=== PATIENT | female | born 1975 | race African-American/Black ===

== ENCOUNTER 2020-07-31 11:19 | Inpatient (IN) | payer SELFPAY ==
[2020-07-31 11:52] VITALS: BMI 24.7
[2020-07-31] MEDS ORDERED: MECLIZINE HCL 12.5 MG TABLET PO ONE ×2 (12:19→13:52)
[2020-07-31] MEDS ORDERED: ONDANSETRON 4 MG/2 ML VIAL IVPUSH ONE (12:19)
[2020-07-31] MEDS ORDERED: ONDANSETRON *ODT* 4 MG TABLET SL ONE (12:29)
[2020-07-31] MEDS ORDERED: diazePAM 5 MG TABLET PO ONE (13:53)
[2020-07-31] MEDS ORDERED: MECLIZINE HCL 25 MG TABLET (FP) PO ONE (13:53)
[2020-07-31] MEDS ORDERED: MECLIZINE HCL 25 MG TABLET (FP) ONE (13:57)
[2020-07-31] MEDS ORDERED: diazePAM 5 MG TABLET ONE (13:57)
[2020-07-31] MEDS ORDERED: MECLIZINE HCL 12.5 MG TABLET ONE (13:57)
[2020-07-31 16:54] LABS: CHLORIDE 104 mmol/L (98-107); SODIUM 135 mmol/L (136-145)
[2020-07-31 16:56] LABS: BASO % 0.4 % (0-2.0); EOS % 0.1 % (0-4.5); HEMATOCRIT 38.4 % (32.4-45.2); HEMOGLOBIN 12.6 GM/dL (10.7-15.3); LYMPH % 15.6 % (8-40); MCH 30.4 pg (25.7-33.7); MCHC 32.9 g/dl (32.0-36.0); MEAN CELL VOLUME 92.4 fl (80-96); MEAN PLT VOLUME 9.5 fl (7.5-11.1); MONO % 6.6 % (3.8-10.2); NEUT % 77.3 % (42.8-82.8); PLATELET COUNT 360 K/MM3 (134-434); RBC 4.15 M/mm3 (3.60-5.2); WHITE BLOOD COUNT 6.8 K/mm3 (4.0-10.0)
[2020-07-31 16:57] LABS: CALCIUM 9.4 mg/dL (8.5-10.1)
[2020-07-31 16:58] LABS: ALBUMIN 4.2 g/dl (3.4-5.0); ANION GAP 5 MMOL/L (8-16); BLOOD UREA NITROGEN 10.8 mg/dL (7-18); CO2 26 mmol/L (21-32); GLUCOSE,RANDOM 84 mg/dL (74-106)
[2020-07-31 17:01] LABS: CHOLESTEROL 185 mg/dL (50-200); CREATININE 0.8 mg/dL (0.55-1.3); SGOT/AST 37 U/L (15-37); SGPT/ALT 18 U/L (13-61); TRIGLYCERIDES 65 mg/dL (0-150)
[2020-07-31 17:02] LABS: LDL CHOLESTEROL (ONLY SJRH) 117 mg/dL (5-100)
[2020-07-31 17:03] LABS: BILIRUBIN,TOTAL 0.7 mg/dL (0.2-1); TOT PROT 9.1 g/dl (6.4-8.2)
[2020-07-31 17:04] LABS: ALK PHOS 67 U/L (45-117)
[2020-07-31 17:44] LABS: HDL CHOLESTEROL 59 mg/dL (40-60)
[2020-07-31] MEDS ORDERED: IBUPROFEN 600 MG TABLET (FP) PO ONE ×2 (19:30→19:32)
[2020-08-01] MEDS ORDERED: ONDANSETRON 4 MG TABLET PO PRN (08:41)
[2020-08-01] MEDS ORDERED: MECLIZINE HCL 25 MG TABLET (FP) PO SCH (08:45)
[2020-08-01] MEDS ORDERED: TOPIRAMATE 25 MG TABLET ONE (08:59)
[2020-08-01] MEDS ORDERED: MECLIZINE HCL 25 MG TABLET (FP) ONE (08:59)
[2020-08-01 09:51] LABS: BASO % 0.8 % (0-2.0); EOS % 1.8 % (0-4.5); HEMATOCRIT 37.5 % (32.4-45.2); HEMOGLOBIN 12.4 GM/dL (10.7-15.3); LYMPH % 24.6 % (8-40); MCH 30.7 pg (25.7-33.7); MCHC 33.1 g/dl (32.0-36.0); MEAN CELL VOLUME 92.6 fl (80-96); MEAN PLT VOLUME 8.6 fl (7.5-11.1); NEUT % 61.8 % (42.8-82.8); PLATELET COUNT 339 K/MM3 (134-434); RBC 4.05 M/mm3 (3.60-5.2); RDW 12.8 % (11.6-15.6)
[2020-08-01] MEDS ORDERED: LORazepam 0.5 MG TABLET PO ONE (09:55)
[2020-08-01] MEDS ORDERED: diphenhydrAMINE HCL 25 MG CAPSULE (FP) PO ONE ×2 (09:55→10:12)
[2020-08-01] MEDS ORDERED: TOPIRAMATE 25 MG TABLET PO SCH (10:00)
[2020-08-01] MEDS ORDERED: LORazepam 1 MG TABLET ONE (10:13)
[2020-08-01 10:17] LABS: POTASSIUM 4.4 mmol/L (3.5-5.1)
[2020-08-01 10:20] LABS: CALCIUM 9.3 mg/dL (8.5-10.1)
[2020-08-01 10:21] LABS: ALBUMIN 3.9 g/dl (3.4-5.0); BLOOD UREA NITROGEN 11.8 mg/dL (7-18)
[2020-08-01 10:25] LABS: BILIRUBIN,TOTAL 0.3 mg/dL (0.2-1); TOT PROT 8.3 g/dl (6.4-8.2)
[2020-08-01] MEDS ORDERED: SODIUM CHLORIDE 500 ML IV STA (11:43)
[2020-08-01] MEDS ORDERED: ACETAMINOPHEN/CAFFEINE/BUTALBITAL 1 TAB PO PRN (11:52)
[2020-08-01 13:12] VITALS: BP 122/84; PULSE 71; TEMP 98
== END 2020-08-01 13:00 | disposition home or self-care (01) | DRG 58 ==
LOC: JER 11:19 → JERBED 15:37
PROVIDERS: ATTEND Nurse Practitioner Family
DX: R26.89 Other abnormalities of gait and mobility (principal); H91.91 Unspecified hearing loss, right ear; H81.10 Benign paroxysmal vertigo, unspecified ear; G43.909 Migraine, unspecified, not intractable, without status migrainosus; H83.09 Labyrinthitis, unspecified ear
CPT/HCPCS: 36415; 70450-TC; 71045-TC-FY; 80053; 80061; 82550; 82553; 83721; 84443; 84484; 85025; 93005; 93010; 99285-25; C9803; Q0162; U0003

== ENCOUNTER 2021-10-20 16:29 | Emergency (ER) | payer OTHER ==
[2021-10-20 16:44] VITALS: TEMP 97.8; BMI 23.1
[2021-10-20] MEDS ORDERED: ACETAMINOPHEN 1000 MG/100 ML BAG IVPB ONE (17:35)
[2021-10-20] MEDS ORDERED: METOCLOPRAMIDE HCL INJECTION 10 MG/2 ML VIAL IVPB ONE (17:35)
[2021-10-20] MEDS ORDERED: SODIUM CHLORIDE 1,000 ML IV STA (17:35)
[2021-10-20] MEDS ORDERED: ACETAMINOPHEN INJECTION 100 ML IVPB ONE (18:12)
[2021-10-20] MEDS ORDERED: METOCLOPRAMIDE HCL INJECTION 10 MG/2 ML VIAL ONE (18:12)
[2021-10-20] MEDS ORDERED: KETOROLAC TROMETHAMINE 60 MG/2 ML VIAL IM ONE (19:52)
[2021-10-20] MEDS ORDERED: LIDOCAINE 5% TOPICAL PATCH TP ONE (19:52)
[2021-10-20] MEDS ORDERED: KETOROLAC TROMETHAMINE 15 MG/ML VIAL ONE (19:57)
[2021-10-20] MEDS ORDERED: LIDOCAINE 5% TOPICAL PATCH ONE (19:57)
[2021-10-20 22:00] VITALS: BP 130/76; PULSE 78
== END 2021-10-20 22:01 | disposition home or self-care (01) ==
LOC: JER 16:29
PROC: 3E0333Z Introduction of Anti-inflammatory into Peripheral Vein, Percutaneous Approach (ICD-10-PCS; principal; 2021-10-20)
PROC: 3E033GC Introduction of Other Therapeutic Substance into Peripheral Vein, Percutaneous Approach (ICD-10-PCS; 2021-10-20)
PROC: 3E033GC Introduction of Other Therapeutic Substance into Peripheral Vein, Percutaneous Approach (ICD-10-PCS; 2021-10-20)
PROC: 3E0337Z Introduction of Electrolytic and Water Balance Substance into Peripheral Vein, Percutaneous Approach (ICD-10-PCS; 2021-10-20)
PROC: 3E0233Z Introduction of Anti-inflammatory into Muscle, Percutaneous Approach (ICD-10-PCS; 2021-10-20)
DX: R51.9 Headache, unspecified (principal)
CPT/HCPCS: 70450-TC; 99284-25

== ENCOUNTER 2022-08-11 10:12 | Emergency (ER) | payer OTHER ==
[2022-08-11 10:27] VITALS: RESP 18; BMI 22.1
[2022-08-11] MEDS ORDERED: SODIUM CHLORIDE 1,000 ML IV SCH (10:45)
[2022-08-11 11:59] LABS: BASO % 1.9 % (0-2.0); EOS % 0.3 % (0-4.5); HEMATOCRIT 37.8 % (32.4-45.2); HEMOGLOBIN 12.2 GM/dL (10.7-15.3); LYMPH % 9.4 % (8-40); MCH 29.6 pg (25.7-33.7); MCHC 32.3 g/dl (32.0-36.0); MEAN CELL VOLUME 91.4 fl (80-96); MEAN PLT VOLUME 9.7 fl (7.5-11.1); MONO % 10.1 % (3.8-10.2); NEUT % 78.3 % (42.8-82.8); PLATELET COUNT 306 10^3/uL (134-434); RBC 4.13 M/mm3 (3.60-5.2); RDW 14.9 % (11.6-15.6); WHITE BLOOD COUNT 7.1 K/mm3 (4.0-10.0)
[2022-08-11 12:15] LABS: ACTIVATED PTT 32.7 SECONDS (25.2-36.5); INR 1.03 (0.83-1.09); PROTHROMBIN TIME (PATIENT) 11.9 SEC (9.7-13.0)
[2022-08-11 12:18] LABS: CALCIUM 9.3 mg/dL (8.5-10.1)
[2022-08-11 12:19] LABS: ALBUMIN 3.8 g/dl (3.4-5.0)
[2022-08-11 12:21] LABS: BLOOD UREA NITROGEN 8.4 mg/dL (7-18)
[2022-08-11 12:22] LABS: CREATININE 0.7 mg/dL (0.55-1.3)
[2022-08-11 12:25] LABS: BILIRUBIN,TOTAL 0.6 mg/dL (0.2-1)
[2022-08-11 15:23] VITALS: BP 137/98; PULSE 74
[2022-08-11 15:36] VITALS: TEMP 98
== END 2022-08-11 16:40 | disposition short-term general hospital (02) ==
LOC: JER 10:12
PROC: 3E0337Z Introduction of Electrolytic and Water Balance Substance into Peripheral Vein, Percutaneous Approach (ICD-10-PCS; principal; 2022-08-11)
DX: I72.0 Aneurysm of carotid artery (principal); R42 Dizziness and giddiness
CPT/HCPCS: 0241U-QW; 36415; 70450-TC; 70496-TC; 70498-TC; 80053; 80061; 82550; 83036; 84484; 84703; 85025; 85610; 85730; 86850; 86900; 86901; 93005; 93010; 99285-25

== ENCOUNTER 2023-01-19 00:47 | Observation (INO) | payer OTHER ==
[2023-01-19] MEDS ORDERED: METOCLOPRAMIDE HCL INJECTION 10 MG/2 ML VIAL IVPUSH ONE (00:49)
[2023-01-19] MEDS ORDERED: SODIUM CHLORIDE 0.9% 500 ML INFUS.BAG IV ONE (00:49)
[2023-01-19] MEDS ORDERED: METOCLOPRAMIDE HCL INJECTION 10 MG/2 ML VIAL ONE (01:04)
[2023-01-19] MEDS ORDERED: ONDANSETRON 4 MG/2 ML VIAL IVPUSH ONE (01:17)
[2023-01-19] MEDS ORDERED: ONDANSETRON 4 MG/2 ML VIAL ONE (01:20)
[2023-01-19] MEDS ORDERED: SODIUM CHLORIDE 1,000 ML IV STA (01:28)
[2023-01-19 01:30] LABS: BASO % 0.8 % (0-2.0); EOS % 0.8 % (0-4.5); HEMATOCRIT 32.1 % (32.4-45.2); HEMOGLOBIN 10.3 GM/dL (10.7-15.3); LYMPH % 21.2 % (8-40); MCH 25.7 pg (25.7-33.7); MEAN CELL VOLUME 80.4 fl (80-96); MEAN PLT VOLUME 8.8 fl (7.5-11.1); MONO % 9.7 % (3.8-10.2); NEUT % 67.5 % (42.8-82.8); PLATELET COUNT 305 10^3/uL (134-434); RBC 3.99 M/mm3 (3.60-5.2); RDW 19.8 % (11.6-15.6); WHITE BLOOD COUNT 6.1 K/mm3 (4.0-10.0)
[2023-01-19 01:37] LABS: INR 0.97 (0.83-1.09); PROTHROMBIN TIME (PATIENT) 11.3 SEC (9.7-13.0)
[2023-01-19 01:47] LABS: CHLORIDE 105 mmol/L (98-107); POTASSIUM 3.4 mmol/L (3.5-5.1); SODIUM 140 mmol/L (136-145)
[2023-01-19 01:49] LABS: ALBUMIN 3.9 g/dl (3.4-5.0); ANION GAP 11 MMOL/L (8-16); BLOOD UREA NITROGEN 15.5 mg/dL (7-18); CALCIUM 9.7 mg/dL (8.5-10.1); CO2 25 mmol/L (21-32); GLUCOSE,RANDOM 126 mg/dL (74-106)
[2023-01-19 01:53] LABS: CREATININE 0.9 mg/dL (0.55-1.3); SGPT/ALT 24 U/L (13-61)
[2023-01-19 01:54] LABS: BILIRUBIN,TOTAL 0.3 mg/dL (0.2-1)
[2023-01-19 01:55] LABS: TOT PROT 7.8 g/dl (6.4-8.2)
[2023-01-19 01:56] LABS: ALK PHOS 46 U/L (45-117)
[2023-01-19 02:04] LABS: SGOT/AST 16 U/L (15-37)
[2023-01-19] MEDS ORDERED: POTASSIUM CHLORIDE TABS 20 MEQ TABLET.ER (FP) PO ONE (02:29)
[2023-01-19 05:24] LABS: MAGNESIUM 1.8 mg/dL (1.8-2.4)
[2023-01-19 05:27] LABS: IRON SERUM 41 ug/dL (50-175); TOTAL IRON BINDING CAPACITY 450 ug/dL (250-450)
[2023-01-19 05:33] LABS: RETICULOCYTES 1.44 % (0.5-1.5)
[2023-01-19] MEDS: KCL 10 MEQ IVPB 10 MEQ/100 ML INFUS.BAG IVPB SCH ×3 (06:44→08:45)
[2023-01-19] MEDS: ENOXAPARIN NA (PORCINE) 40 MG/0.4 ML DISP.SYRIN SQ SCH (10:00)
[2023-01-19] MEDS ORDERED: MECLIZINE HCL 25 MG TABLET (FP) PO PRN (13:04)
[2023-01-19] MEDS ORDERED: LORazepam 2 MG/ML SDV VIAL IVPUSH PRN (16:15)
[2023-01-20 06:41] LABS: EOS % 1.2 % (0-4.5); HEMATOCRIT 30.5 % (32.4-45.2); HEMOGLOBIN 9.7 GM/dL (10.7-15.3); LYMPH % 25.4 % (8-40); MCHC 31.7 g/dl (32.0-36.0); MEAN CELL VOLUME 82.2 fl (80-96); MEAN PLT VOLUME 9.4 fl (7.5-11.1); MONO % 10.5 % (3.8-10.2); NEUT % 61.9 % (42.8-82.8); PLATELET COUNT 273 10^3/uL (134-434); RBC 3.71 M/mm3 (3.60-5.2); RDW 20.5 % (11.6-15.6); WHITE BLOOD COUNT 4.1 K/mm3 (4.0-10.0)
[2023-01-20 06:58] LABS: POTASSIUM 3.8 mmol/L (3.5-5.1)
[2023-01-20 07:01] LABS: CALCIUM 8.7 mg/dL (8.5-10.1)
[2023-01-20 07:02] LABS: ALBUMIN 3.2 g/dl (3.4-5.0)
[2023-01-20 07:05] LABS: CREATININE 0.9 mg/dL (0.55-1.3); PHOSPHOROUS 3.1 mg/dL (2.5-4.9)
[2023-01-20 07:06] LABS: BILIRUBIN,TOTAL 0.4 mg/dL (0.2-1); TOT PROT 6.6 g/dl (6.4-8.2)
[2023-01-20 09:11] LABS: ANISOCYTOSIS 2+; MACROCYTOSIS 0; OVALOCYTE 1+
[2023-01-20] MEDS: ENOXAPARIN NA (PORCINE) 40 MG/0.4 ML DISP.SYRIN SQ SCH (10:16)
[2023-01-20 10:44] LABS: COCAINE, UR NEGATIVE (NEGATIVE); METHADONE, UR NEGATIVE (NEGATIVE); OPIATES, URI NEGATIVE (NEGATIVE); URINE AMPHETAMINES NEGATIVE (NEGATIVE)
[2023-01-20 10:45] LABS: PHENCYCLIDINE,URINE NEGATIVE (NEGATIVE); URINE BARBITURATES NEGATIVE (NEGATIVE); URINE BENZODIAZEPINES NEGATIVE (NEGATIVE)
[2023-01-20] MEDS ORDERED: MECLIZINE HCL 25 MG TABLET (FP) PO ONE (13:57)
[2023-01-20] MEDS ORDERED: SODIUM CHLORIDE 250 ML IV STA (14:33)
[2023-01-20] MEDS: SODIUM CHLORIDE 1,000 ML IV SCH (15:44)
[2023-01-20] MEDS ORDERED: MECLIZINE HCL 25 MG TABLET (FP) PO SCH (18:00)
[2023-01-20] MEDS: MECLIZINE HCL 25 MG TABLET (FP) PO SCH (21:22)
[2023-01-21] MEDS: MECLIZINE HCL 25 MG TABLET (FP) PO SCH ×4 (06:23→17:40)
[2023-01-21 08:15] LABS: BASO % 0.9 % (0-2.0); EOS % 0.8 % (0-4.5); HEMATOCRIT 28.8 % (32.4-45.2); LYMPH % 26.8 % (8-40); MCH 26.1 pg (25.7-33.7); MCHC 31.3 g/dl (32.0-36.0); MEAN CELL VOLUME 83.5 fl (80-96); MEAN PLT VOLUME 10.2 fl (7.5-11.1); MONO % 9.7 % (3.8-10.2); NEUT % 61.8 % (42.8-82.8); PLATELET COUNT 247 10^3/uL (134-434); RBC 3.45 M/mm3 (3.60-5.2); RDW 20.6 % (11.6-15.6); WHITE BLOOD COUNT 4.8 K/mm3 (4.0-10.0)
[2023-01-21 08:28] LABS: POTASSIUM 3.8 mmol/L (3.5-5.1)
[2023-01-21 08:30] LABS: CALCIUM 8.3 mg/dL (8.5-10.1)
[2023-01-21 08:31] LABS: BLOOD UREA NITROGEN 8.3 mg/dL (7-18)
[2023-01-21 08:33] LABS: MAGNESIUM 1.7 mg/dL (1.8-2.4)
[2023-01-21 08:34] LABS: CREATININE 0.7 mg/dL (0.55-1.3); PHOSPHOROUS 2.8 mg/dL (2.5-4.9)
[2023-01-21 08:35] LABS: TOT PROT 6.1 g/dl (6.4-8.2)
[2023-01-21 08:36] LABS: BILIRUBIN,TOTAL 0.3 mg/dL (0.2-1)
[2023-01-21] MEDS: ENOXAPARIN NA (PORCINE) 40 MG/0.4 ML DISP.SYRIN SQ SCH (09:13)
[2023-01-21 11:24] VITALS: BMI 21.7
[2023-01-21] MEDS ORDERED: PRASUGREL HCL 10 MG TAB PO SCH ×3 (18:00→22:00)
[2023-01-21] MEDS ORDERED: ASPIRIN 81 MG CHEWABLE TABLETS PO SCH ×2 (18:00→22:00)
[2023-01-21] MEDS: SODIUM CHLORIDE 1,000 ML IV SCH (21:53)
[2023-01-21] MEDS ORDERED: ASPIRIN COATED 81 MG TABLET.EC PO SCH ×2 (22:00)
[2023-01-22] MEDS ORDERED: MAGNESIUM 2GM/50ML STERILE WATER IVPB IVPB ONE (08:00)
[2023-01-22 09:40] VITALS: RESP 18; TEMP 98.8
[2023-01-22] MEDS: ENOXAPARIN NA (PORCINE) 40 MG/0.4 ML DISP.SYRIN SQ SCH (09:40)
[2023-01-22 09:43] VITALS: BP 122/77; PULSE 76
[2023-01-22] MEDS ORDERED: MULTIVITAMINS THER W-MINERALS COMBO TABLET (FP) PO SCH (10:00)
== END 2023-01-22 15:57 | disposition home or self-care (01) ==
LOC: JER 00:47 → INTOOBSV 02:31 → UNDOADMOB 02:31 → JERBED 02:31 → J4W 06:01
PROVIDERS: ADMIT Internal Medicine; ATTEND Internal Medicine
PROC: 3E023GC Introduction of Other Therapeutic Substance into Muscle, Percutaneous Approach (ICD-10-PCS; principal; 2023-01-19)
PROC: 3E033GC Introduction of Other Therapeutic Substance into Peripheral Vein, Percutaneous Approach (ICD-10-PCS; 2023-01-19)
PROC: 3E033GC Introduction of Other Therapeutic Substance into Peripheral Vein, Percutaneous Approach (ICD-10-PCS; 2023-01-19)
PROC: 3E0337Z Introduction of Electrolytic and Water Balance Substance into Peripheral Vein, Percutaneous Approach (ICD-10-PCS; 2023-01-19)
DX: M62.81 Muscle weakness (generalized) (principal); D64.9 Anemia, unspecified; Z29.8 Encounter for other specified prophylactic measures; I69.851 Hemiplegia and hemiparesis following other cerebrovascular disease affecting right dominant side; G35 Multiple sclerosis; I67.1 Cerebral aneurysm, nonruptured; Z88.5 Allergy status to narcotic agent
CPT/HCPCS: 36415; 70450-TC; 70553-TC; 80053; 80061; 80307; 82272; 82728; 82962; 83036; 83540; 83550; 83735; 84100; 84443; 84484; 84702; 85025; 85045; 85610; 93005; 93010; 93306-TC; 93880-TC; 96361; 96365; 96372; 96375; 97116-GP; 97162-GP; 99285-25; A9579; G0378

== ENCOUNTER 2023-07-04 10:40 | Inpatient (IN) | payer OTHER ==
[2023-07-04] MEDS ORDERED: ACETAMINOPHEN 1000 MG/100 ML BAG IVPB ONE (11:42)
[2023-07-04] MEDS ORDERED: ACETAMINOPHEN INJECTION 100 ML IVPB ONE (12:03)
[2023-07-04 12:21] LABS: HEMATOCRIT 31.4 % (32.4-45.2); MCH 27.4 pg (25.7-33.7); MCHC 31.9 g/dl (32.0-36.0); MEAN CELL VOLUME 85.9 fl (80-96); MEAN PLT VOLUME 9.2 fl (7.5-11.1); PLATELET COUNT 442 10^3/uL (134-434); RBC 3.65 M/mm3 (3.60-5.2); RDW 16.5 % (11.6-15.6); WHITE BLOOD COUNT 10.3 K/mm3 (4.0-10.0)
[2023-07-04 12:31] LABS: INR 0.96 (0.83-1.09); PROTHROMBIN TIME (PATIENT) 11.1 SEC (9.7-13.0)
[2023-07-04 12:34] LABS: ACTIVATED PTT 26.7 SECONDS (25.2-36.5)
[2023-07-04 12:36] LABS: POTASSIUM 4.7 mmol/L (3.5-5.1)
[2023-07-04 12:38] LABS: CALCIUM 8.9 mg/dL (8.5-10.1)
[2023-07-04 12:39] LABS: ALBUMIN 3.3 g/dl (3.4-5.0); BLOOD UREA NITROGEN 14.2 mg/dL (7-18)
[2023-07-04 12:42] LABS: CREATININE 0.6 mg/dL (0.55-1.3)
[2023-07-04 12:43] LABS: TOT PROT 6.9 g/dl (6.4-8.2)
[2023-07-04 12:44] LABS: BILIRUBIN,TOTAL 0.4 mg/dL (0.2-1)
[2023-07-04 12:47] LABS: N-TERMINAL BNP 13.7 pg/ml (5-125)
[2023-07-04] MEDS ORDERED: ONDANSETRON 4 MG/2 ML VIAL IVPUSH ONE (13:11)
[2023-07-04] MEDS ORDERED: ONDANSETRON 4 MG/2 ML VIAL ONE (13:18)
[2023-07-04 14:36] LABS: ANISOCYTOSIS 0; HELMET CELLS 0; HOWELL-JOLLY BODIES 0; MACROCYTOSIS 0; OVALOCYTE 0; ROULEAU 0; SICKELED CELLS 0; TARGET CELLS 0; TEAR DROP CELLS 0; TOXIC GRANULATION 0
[2023-07-04] MEDS ORDERED: SODIUM CHLORIDE 1,000 ML IV SCH (16:45)
[2023-07-04 18:01] LABS: PH,URINE 6.5 (5.0-8.0); URINE APPEARANCE CLEAR; URINE BILIRUBIN NEGATIVE (NEGATIVE); URINE COLOR YELLOW; URINE GLUCOSE (UA) NEGATIVE (NEGATIVE); URINE KETONE NEGATIVE (NEGATIVE); URINE LEUK ESTERASE NEGATIVE (NEGATIVE); URINE NITRITE NEGATIVE (NEGATIVE); URINE PROTEIN NEGATIVE (NEGATIVE); URINE UROBILINOGEN 0.2 mg/dL (0.2-1.0)
[2023-07-04 18:32] VITALS: BMI 21.9
[2023-07-04] MEDS ORDERED: ATORVASTATIN CA 80 MG TABLET (FP) PO SCH (22:00)
[2023-07-04] MEDS: ASPIRIN 81 MG CHEWABLE TABLETS PO SCH (22:41)
[2023-07-04] MEDS: DIVALPROEX NA *ER* EXTEND REL 500 MG TABLET.SA (FP) PO SCH (22:46)
[2023-07-05] MEDS: ENOXAPARIN NA (PORCINE) 40 MG/0.4 ML DISP.SYRIN SQ SCH (10:01)
[2023-07-05] MEDS: DIVALPROEX NA *ER* EXTEND REL 500 MG TABLET.SA (FP) PO SCH ×2 (10:01→21:37)
[2023-07-05 11:11] LABS: BLOOD UREA NITROGEN 11.5 mg/dL (7-18); CALCIUM 8.7 mg/dL (8.5-10.1)
[2023-07-05 11:12] LABS: ALBUMIN 3.1 g/dl (3.4-5.0)
[2023-07-05 11:14] LABS: CREATININE 0.8 mg/dL (0.55-1.3); PHOSPHOROUS 3.2 mg/dL (2.5-4.9)
[2023-07-05 11:16] LABS: BILIRUBIN,TOTAL 0.5 mg/dL (0.2-1); TOT PROT 6.2 g/dl (6.4-8.2)
[2023-07-05 12:15] LABS: HEMATOCRIT 30.2 % (32.4-45.2); HEMOGLOBIN 9.8 GM/dL (10.7-15.3); MCH 27.6 pg (25.7-33.7); MCHC 32.2 g/dl (32.0-36.0); MEAN CELL VOLUME 85.5 fl (80-96); MEAN PLT VOLUME 9.3 fl (7.5-11.1); PLATELET COUNT 375 10^3/uL (134-434); RBC 3.54 M/mm3 (3.60-5.2); RDW 16.2 % (11.6-15.6); WHITE BLOOD COUNT 8.6 K/mm3 (4.0-10.0)
[2023-07-05 13:48] LABS: ANISOCYTOSIS 0; HELMET CELLS 0; HOWELL-JOLLY BODIES 0; MACROCYTOSIS 0; OVALOCYTE 0; ROULEAU 0; SICKELED CELLS 0; TARGET CELLS 0; TEAR DROP CELLS 0; TOXIC GRANULATION 0
[2023-07-05] MEDS: ASPIRIN 81 MG CHEWABLE TABLETS PO SCH (21:37)
[2023-07-05] MEDS: ATORVASTATIN CA 80 MG TABLET (FP) PO SCH (21:37)
[2023-07-06 09:22] LABS: HEMATOCRIT 30.3 % (32.4-45.2); HEMOGLOBIN 9.6 GM/dL (10.7-15.3); MCH 27.2 pg (25.7-33.7); MCHC 31.8 g/dl (32.0-36.0); MEAN CELL VOLUME 85.5 fl (80-96); MEAN PLT VOLUME 8.9 fl (7.5-11.1); PLATELET COUNT 347 10^3/uL (134-434); RBC 3.54 M/mm3 (3.60-5.2); RDW 16.5 % (11.6-15.6); WHITE BLOOD COUNT 9.8 K/mm3 (4.0-10.0)
[2023-07-06] MEDS: DIVALPROEX NA *ER* EXTEND REL 500 MG TABLET.SA (FP) PO SCH ×3 (09:59→21:47)
[2023-07-06] MEDS: ENOXAPARIN NA (PORCINE) 40 MG/0.4 ML DISP.SYRIN SQ SCH (09:59)
[2023-07-06 10:09] LABS: POTASSIUM 4.1 mmol/L (3.5-5.1)
[2023-07-06 10:18] LABS: CALCIUM 8.8 mg/dL (8.5-10.1)
[2023-07-06 10:19] LABS: ALBUMIN 3.2 g/dl (3.4-5.0)
[2023-07-06 10:22] LABS: CREATININE 0.6 mg/dL (0.55-1.3)
[2023-07-06 10:23] LABS: BILIRUBIN,TOTAL 0.3 mg/dL (0.2-1); TOT PROT 6.5 g/dl (6.4-8.2)
[2023-07-06] MEDS ORDERED: MECLIZINE HCL 25 MG TABLET (FP) PO ONE (17:29)
[2023-07-06] MEDS ORDERED: LORazepam 1 MG TABLET PO ONE (17:30)
[2023-07-06] MEDS: ACETAMINOPHEN 325 MG TABLET (FP) PO SCH (18:36)
[2023-07-06] MEDS: ASPIRIN 81 MG CHEWABLE TABLETS PO SCH (21:39)
[2023-07-06] MEDS: ATORVASTATIN CA 80 MG TABLET (FP) PO SCH ×2 (21:40→21:48)
[2023-07-07] MEDS: ACETAMINOPHEN 325 MG TABLET (FP) PO SCH ×3 (02:18→17:28)
[2023-07-07 09:27] LABS: HEMATOCRIT 31.3 % (32.4-45.2); MCH 27.4 pg (25.7-33.7); MCHC 31.8 g/dl (32.0-36.0); MEAN CELL VOLUME 86.1 fl (80-96); MEAN PLT VOLUME 9.2 fl (7.5-11.1); PLATELET COUNT 342 10^3/uL (134-434); RBC 3.64 M/mm3 (3.60-5.2); RDW 16.2 % (11.6-15.6)
[2023-07-07] MEDS: DIVALPROEX NA *ER* EXTEND REL 500 MG TABLET.SA (FP) PO SCH (09:45)
[2023-07-07] MEDS: ENOXAPARIN NA (PORCINE) 40 MG/0.4 ML DISP.SYRIN SQ SCH (09:45)
[2023-07-07 09:47] LABS: POTASSIUM 4.1 mmol/L (3.5-5.1)
[2023-07-07 09:55] LABS: ALBUMIN 3.3 g/dl (3.4-5.0); BLOOD UREA NITROGEN 10.7 mg/dL (7-18); CALCIUM 8.9 mg/dL (8.5-10.1)
[2023-07-07 09:56] LABS: MAGNESIUM 2.1 mg/dL (1.8-2.4)
[2023-07-07 09:58] LABS: CREATININE 0.8 mg/dL (0.55-1.3); PHOSPHOROUS 2.8 mg/dL (2.5-4.9)
[2023-07-07 09:59] LABS: BILIRUBIN,TOTAL 0.5 mg/dL (0.2-1)
[2023-07-07 10:00] LABS: TOT PROT 6.8 g/dl (6.4-8.2)
[2023-07-07] MEDS: ATORVASTATIN CA 80 MG TABLET (FP) PO SCH (22:49)
[2023-07-07] MEDS: ASPIRIN 81 MG CHEWABLE TABLETS PO SCH (22:49)
[2023-07-08] MEDS: ACETAMINOPHEN 325 MG TABLET (FP) PO SCH ×3 (01:23→18:17)
[2023-07-08] MEDS: ENOXAPARIN NA (PORCINE) 40 MG/0.4 ML DISP.SYRIN SQ SCH (11:48)
[2023-07-08] MEDS: ATORVASTATIN CA 80 MG TABLET (FP) PO SCH (22:01)
[2023-07-08] MEDS: ASPIRIN 81 MG CHEWABLE TABLETS PO SCH (22:01)
[2023-07-09] MEDS: ACETAMINOPHEN 325 MG TABLET (FP) PO SCH ×3 (03:12→18:22)
[2023-07-09 08:58] LABS: HEMATOCRIT 33.1 % (32.4-45.2); HEMOGLOBIN 10.4 GM/dL (10.7-15.3); MCH 27.1 pg (25.7-33.7); MCHC 31.4 g/dl (32.0-36.0); MEAN CELL VOLUME 86.4 fl (80-96); MEAN PLT VOLUME 8.9 fl (7.5-11.1); PLATELET COUNT 348 10^3/uL (134-434); RBC 3.83 M/mm3 (3.60-5.2); RDW 16.9 % (11.6-15.6); WHITE BLOOD COUNT 10.1 K/mm3 (4.0-10.0)
[2023-07-09] MEDS: ENOXAPARIN NA (PORCINE) 40 MG/0.4 ML DISP.SYRIN SQ SCH (09:14)
[2023-07-09 09:19] LABS: POTASSIUM 4.5 mmol/L (3.5-5.1)
[2023-07-09 09:23] LABS: BLOOD UREA NITROGEN 10.3 mg/dL (7-18)
[2023-07-09 09:24] LABS: CALCIUM 9.1 mg/dL (8.5-10.1)
[2023-07-09 09:25] LABS: ALBUMIN 3.4 g/dl (3.4-5.0)
[2023-07-09 09:26] LABS: CREATININE 0.7 mg/dL (0.55-1.3)
[2023-07-09 09:27] LABS: BILIRUBIN,TOTAL 0.4 mg/dL (0.2-1)
[2023-07-09 14:29] VITALS: RESP 18
[2023-07-09] MEDS ORDERED: LORazepam 1 MG TABLET PO ONE (17:46)
[2023-07-09] MEDS: ASPIRIN 81 MG CHEWABLE TABLETS PO SCH (21:45)
[2023-07-09] MEDS: ATORVASTATIN CA 80 MG TABLET (FP) PO SCH (21:45)
[2023-07-10] MEDS: ACETAMINOPHEN 325 MG TABLET (FP) PO SCH ×5 (02:05→18:30)
[2023-07-10] MEDS: ENOXAPARIN NA (PORCINE) 40 MG/0.4 ML DISP.SYRIN SQ SCH (09:01)
[2023-07-10 10:26] LABS: HEMATOCRIT 31.7 % (32.4-45.2); HEMOGLOBIN 10.1 GM/dL (10.7-15.3); MCH 27.1 pg (25.7-33.7); MCHC 31.7 g/dl (32.0-36.0); MEAN CELL VOLUME 85.5 fl (80-96); MEAN PLT VOLUME 9.2 fl (7.5-11.1); PLATELET COUNT 279 10^3/uL (134-434); RBC 3.71 M/mm3 (3.60-5.2); WHITE BLOOD COUNT 7.3 K/mm3 (4.0-10.0)
[2023-07-10 10:42] LABS: POTASSIUM 3.7 mmol/L (3.5-5.1)
[2023-07-10 10:54] LABS: ALBUMIN 3.3 g/dl (3.4-5.0)
[2023-07-10 10:56] LABS: CALCIUM 8.7 mg/dL (8.5-10.1); MAGNESIUM 1.8 mg/dL (1.8-2.4); PHOSPHOROUS 3.2 mg/dL (2.5-4.9)
[2023-07-10 10:58] LABS: BILIRUBIN,TOTAL 0.4 mg/dL (0.2-1); TOT PROT 6.7 g/dl (6.4-8.2)
[2023-07-10] MEDS: ATORVASTATIN CA 80 MG TABLET (FP) PO SCH (21:23)
[2023-07-10] MEDS: ASPIRIN 81 MG CHEWABLE TABLETS PO SCH (21:23)
[2023-07-11] MEDS ORDERED: guaiFENesin 200 MG/10 ML 10 ML UNIT-DOSE CUPS PO PRN (09:16)
[2023-07-11] MEDS: ENOXAPARIN NA (PORCINE) 40 MG/0.4 ML DISP.SYRIN SQ SCH (09:21)
[2023-07-11] MEDS: ACETAMINOPHEN 325 MG TABLET (FP) PO SCH ×2 (10:14→17:19)
[2023-07-11 14:40] VITALS: BP 112/64; PULSE 93; TEMP 99
[2023-07-12 19:06] LABS: PROTEIN S FREE 94 % (61-136)
== END 2023-07-11 18:54 | disposition home or self-care (01) | DRG 661 ==
LOC: JER 10:40 → JERBED 16:09 → J6S 18:15 → OBSVTOIN 07-05 10:00
PROVIDERS: ADMIT Internal Medicine; ATTEND Internal Medicine
DX: D68.59 Other primary thrombophilia (principal); U07.1 COVID-19; G35 Multiple sclerosis; I69.351 Hemiplegia and hemiparesis following cerebral infarction affecting right dominant side; G43.909 Migraine, unspecified, not intractable, without status migrainosus; G40.909 Epilepsy, unspecified, not intractable, without status epilepticus; M50.323 Other cervical disc degeneration at C6-C7 level; D64.9 Anemia, unspecified
CPT/HCPCS: 0241U-QW; 36415; 70450-TC; 70553-TC; 71045-TC-FY; 71275-TC; 71552-TC; 72156-TC; 72157-TC; 80053; 80061; 81003; 83036; 83735; 83880; 84100; 84484; 84703; 85025; 85027; 85305; 85306; 85610; 85730; 87086; 87635; 93005; 93010; 93306-TC; 93970-TC; 97116-GP; 97162-GP; 99285-25; G0378; Q9967